=== PATIENT | female | born 1995 | race Caucasian/White ===

== ENCOUNTER 2024-05-25 16:37 | Emergency (ER) | payer SELFPAY ==
[~2024-05-25] VITALS: Ht 160 cm; Wt 80.0 kg
[2024-05-25 16:50] VITALS: TEMP 98.1; O2SAT 97
[2024-05-25] MEDS: BACITRACIN ZINC OINT UDPKT TOP ONE (18:33)
[2024-05-25] MEDS: LIDOCAINE HCL/PF 1% 10 MG/ML 5ML VIAL INFIL ONE (18:33)
[2024-05-25 18:34] VITALS: BP 127/68; PULSE 93; RESP 16
[2024-05-25] MEDS: IBUPROFEN 600MG TABLET PO STA (18:34)
[2024-05-25] MEDS ORDERED: BO1 TP (19:42)
[2024-05-25] MEDS ORDERED: IBUP-2029 PO (19:42)
[2024-05-25] MEDS ORDERED: DOXY100T28 MT (19:42)
== END 2024-05-25 19:53 | disposition home or self-care (01) ==
LOC: ER 16:37
DX: L60.0 Ingrowing nail (principal); L03.032 Cellulitis of left toe
CPT/HCPCS: 81025; 73630; 99283; J3490; Z7610